=== PATIENT | female | born 1985 | race Caucasian/White ===

== ENCOUNTER 2017-09-01 07:12 | Day surgery (SDC) | payer OTHER ==
[~2017-09-01] VITALS: Ht 167.6 cm; Wt 68.0 kg
[~2017-09-01 07:12] MED LIST: ASACOL400 MG PO; MIRENA52 MG IY; MOTRIN IB200 MG; Vancocin PO; WELLBUTRIN XL300 MG PO; ZOFRAN4 MG PO
[2017-09-01 07:59] VITALS: BP 109/63
[2017-09-01 11:05] VITALS: BP 108/67
[2017-09-01 11:59] VITALS: BP 109/67
== END 2017-09-01 12:05 | disposition home or self-care (01) ==
LOC: SDC 07:12
PROC: 0UBC7ZX Excision of Cervix, Via Natural or Artificial Opening, Diagnostic (ICD-10-PCS; principal; 2017-09-01)
DX: D06.9 Carcinoma in situ of cervix, unspecified (principal); K50.90 Crohn's disease, unspecified, without complications; M43.16 Spondylolisthesis, lumbar region; E55.9 Vitamin D deficiency, unspecified; I95.9 Hypotension, unspecified; Z88.0 Allergy status to penicillin
CPT/HCPCS: 87641; 88307; 88342 TC; J0690; J1100; J1170; J2405